=== PATIENT | male | born 1950 | race Caucasian/White ===

== ENCOUNTER 2016-09-27 09:59 | Emergency (ER) | payer OTHER, MEDICAID ==
[~2016-09-27 09:59] MED LIST: ALBU8.5H5 INH; AZIT250T89 PO; CYAN10005 PO; DILT120C PO; PRED20TA PO; RISP1SOL5 PO; TRAZ5POW PO
[2016-09-29 15:34] LABS: DAU SCREEN DISCLAIMER
[2016-09-30 14:35] LABS: ACETAMINOPHEN < 2 mcg/mL (10-30)
== END 2016-09-27 13:43 | disposition home or self-care (01) ==
LOC: ED 09:59
DX: F10.220 Alcohol dependence with intoxication, uncomplicated (principal); F32.9 Major depressive disorder, single episode, unspecified; J44.9 Chronic obstructive pulmonary disease, unspecified; I50.9 Heart failure, unspecified
CPT/HCPCS: 36415; 80076; 80307; 80329; 81001; 85025; 99284; G0480

== ENCOUNTER 2017-02-02 11:06 | Emergency (ER) | payer OTHER, MEDICAID ==
[~2017-02-02] VITALS: Ht 182.9 cm; Wt 68.0 kg
[2017-02-02] MEDS ORDERED: HYDROmorphone 1 MG/ML, 1ML ONE ×2 (11:39→16:15)
[2017-02-02] MEDS ORDERED: methylPREDNISolone SOD SUCC 125 MG/2 ML ONE (11:40)
[2017-02-02] MEDS ORDERED: KETOROLAC 30 MG/1 ML IVPush ONE (12:00)
[2017-02-02] MEDS ORDERED: SODIUM CHLORIDE 0.9% 1,000ML IVBOLUS ONE (12:00)
[2017-02-02] MEDS ORDERED: ALBUTEROL SULFATE 2.5 MG/3 ML NPPB ONE (12:00)
[2017-02-02] MEDS ORDERED: methylPREDNISolone SOD SUCC 125 MG/2 ML IVP ONE (12:00)
[2017-02-02] MEDS: HYDROmorphone 1 MG/ML, 1ML IV PRN ×2 (12:03→16:29)
[2017-02-02] MEDS ORDERED: ALBUTEROL/IPRATROPIUM 2.5MG/0.5MG, 3 ML ONE (12:04)
[2017-02-02 12:06] LABS: HEMATOCRIT 43.8 % (39.2-51.8); HEMOGLOBIN 14.8 g/dL (13.7-18.0); WHITE BLOOD COUNT 11.3 x10^3/uL (3.4-10)
[2017-02-02] MEDS ORDERED: KETOROLAC 30 MG/1 ML ONE (12:06)
[2017-02-02 12:16] LABS: BLOOD UREA NITROGEN 10 mg/dL (7-18)
[2017-02-02] MEDS ORDERED: AZITHROMYCIN 500 MG in SODIUM CHLORIDE 0.9% 250 ML IV ONE (13:00)
[2017-02-02] MEDS ORDERED: SODIUM CHLORIDE FLUSH 10ML SYR IVF ONE (13:00)
[2017-02-02 17:35] VITALS: BP 113/64
== END 2017-02-02 18:31 | disposition short-term general hospital (02) ==
LOC: ED 12:42 → EDIP 12:43 → UNDOADMIN 12:43 → ED 13:07 → UNDODISIN 18:20
DX: J96.01 Acute respiratory failure with hypoxia (principal); S29.011A Strain of muscle and tendon of front wall of thorax, initial encounter; J44.1 Chronic obstructive pulmonary disease with (acute) exacerbation; I50.9 Heart failure, unspecified; X58.XXXA Exposure to other specified factors, initial encounter; Y93.89 Activity, other specified; Y92.89 Other specified places as the place of occurrence of the external cause; Y99.9 Unspecified external cause status
CPT/HCPCS: 36415; 71010; 80048; 82040; 85025; 93005; 94640; 96361; 96365; 96375; 96376; 99291; J0456; J1170; J1885; J2930; J7030; J7050; J7613